=== PATIENT | female | born 1930 | race Caucasian/White ===

== ENCOUNTER 2019-03-15 11:39 | Day surgery (SDC) | payer MEDICARE, BC ==
[2019-03-15 12:23] VITALS: RESP 18
[2019-03-15 12:27] LABS: INR 2.32 (0.87-1.13)
[2019-03-15] MEDS ORDERED: MIDAZOLAM 2 MG/2 ML SOL ONE (12:28)
[2019-03-15] MEDS ORDERED: FENTANYL 100MCG/2ML SOL ONE (12:29)
[2019-03-15] MEDS: CYCLOPENTOLATE 1% SOL ONE ×3 (12:31→12:38)
[2019-03-15] MEDS: PHENYLEPHRINE HCL 10% OPHTHAL SOL ONE ×3 (12:31→12:38)
[2019-03-15] MEDS ORDERED: MOXIFLOXACIN-HOME SOL RIGHTEYE ONE ×2 (12:32→12:35)
[2019-03-15] MEDS: TROPICAMIDE 1% OPHTH SOL ONE ×3 (12:32→12:38)
[2019-03-15] MEDS ORDERED: KETOROLAC/HOME 0.5% SOL RIGHTEYE ONE ×3 (12:32→12:38)
[2019-03-15] MEDS: TETRACAINE HCL 0.5 % 1 DROP SOL ONE ×2 (12:38→13:10)
[2019-03-15] MEDS ORDERED: POVIDONE IODINE 5% SOL ONE (13:03)
[2019-03-15] MEDS ORDERED: BSS W/ 0.5 MG P.F. EPI 1 BOTTLE ONE (13:03)
[2019-03-15] MEDS ORDERED: LIDOCAINE HCL 2% MPF 10 ML SOL ONE (13:03)
[2019-03-15] MEDS ORDERED: ACETAZOLAMIDE 250 MG PO ONE (13:12)
[2019-03-15 13:31] VITALS: PULSE 84; TEMP 97.4; O2SAT 95
[2019-03-15 13:42] VITALS: BP 124/72
== END 2019-03-15 14:00 | disposition home or self-care (01) | DRG 125 ==
LOC: SURG 11:39
PROVIDERS: ATTEND Ophthalmology
DX: H25.89 Other age-related cataract (principal); E11.9 Type 2 diabetes mellitus without complications
CPT/HCPCS: 36415; 85610; J2250; J3010; A9270-GY